=== PATIENT | male | born 1995 | race Caucasian/White ===

== ENCOUNTER 2017-01-08 13:13 | Emergency (ER) | payer BC, OTHER ==
[2017-01-08 13:17] VITALS: BP 115/65; PULSE 85; TEMP 99.1; BMI 25.8
--- NOTE | 2017-01-08 14:03 | PDOC ---
History of Present Illness - General Chief Complaint: Pain, Acute Stated Complaint: LEFT CHEEK PAIN Time Seen by Provider: 01/08/17 13:31 - History of Present Illness Initial Comments: 01/08/17 17:21 Chief complaint: Facial pain History of present illness: Patient has been experiencing severe pain in his left cheek for several days. There's been no trauma. The pain is localized to the area of the zygoma. It is painful to palpation and with mastication. He saw his dentist yesterday, who did a dental exam and dental x-rays, and told him that there is no problem with the teeth, and that his pain is becoming from elsewhere. Review of systems: No fever/chills, trauma, headache, earache or sore throat, cough, chest pain, shortness of breath, abdominal pain, nausea, vomiting, diarrhea, visual or focal neurologic symptoms, unsteadiness of gait Past medical history: Patient is a healthy male with mild asthma, no recent exacerbations, no maintenance medication, only rescue inhaler as needed Social/family history reviewed and noncontributory Physical exam: Alert oriented 3 well-developed well-nourished no acute distress cheerful and cooperative Examination of the face shows no swelling, erythema, induration, skin lesions or rash. There is moderate point tenderness over the infraorbital portion of the maxilla and the medial aspect of the zygoma. There is no palpable deformity Head is otherwise atraumatic. PERRLA 4 mm, fundi benign, ENT clear. Dentition appears intact and without evidence of DKA. No palpable tenderness of the oropharynx when examined from inside with a gloved finger. No gingival inflammation or tenderness Neck supple without bruit mass or nodes Chest clear CV regular without murmur rub or gallop Abdomen benign Neurological C2 to 12 intact. No focal sensory or motor deficits. Gait stable and unimpaired. Strength full and symmetric Impression: An occult dental abscess is probably the most likely etiology, especially since the pain is exacerbated with chewing. There is no pain or tenderness over the TMJ. There are no palpable masses. CT scan of the facial bones is negative except for chronic sinusitis bilaterally. Plan: Empiric treatment of sinusitis and follow-up ENT Past History - Past Medical History Allergies/Adverse Reactions: Allergies Allergy/AdvReac Type Severity Reaction Status Date / Time Seasonal Allergy Uncoded 01/08/17 13:15 Home Medications: Ambulatory Orders Budesonide [Rhinocort Allergy] 2 inh NS DAILY #1 spray.pump 01/08/17 Cefuroxime Axetil [Ceftin -] 500 mg PO Q12H #20 tablet 01/08/17 Naproxen [Naprosyn] 375 mg PO BID PRN #20 tablet 01/08/17 Asthma: Yes - Psycho/Social/Smoking Cessation Hx Anxiety: No Suicidal Ideation: No Smoking History: Never smoked Information on smoking cessation initiated: No Hx Alcohol Use: No Drug/Substance Use Hx: No Substance Use Type: None *Physical Exam - Vital Signs Last Vital Signs Temp Pulse Resp BP Pulse Ox 99.1 F 85 18 115/65 99 01/08/17 13:16 01/08/17 13:16 01/08/17 13:16 01/08/17 13:16 01/08/17 13:16 *DC/Admit/Observation/Transfer Diagnosis at time of Disposition: Acute sinusitis Qualifiers: Sinusitis location: maxillary Recurrence: non-recurrent Qualified Code(s): J01.00 - Acute maxillary sinusitis, unspecified - Discharge Dispostion Disposition: HOME Condition at time of disposition: Stable Admit: No - Prescriptions Prescriptions: Cefuroxime Axetil [Ceftin -] 500 mg PO Q12H #20 tablet Naproxen [Naprosyn] 375 mg PO BID PRN #20 tablet PRN Reason: Pain Budesonide [Rhinocort Allergy] 2 inh NS DAILY #1 spray.pump - Referrals Referrals: Gerardo Guadalupe MD [Staff Physician] - 1 week - Patient Instructions Printed Discharge Instructions: DI for Sinusitis Additional Instructions: If no improvement with therapy, must see ENT specialist for further evaluation and treatment.
== END 2017-01-08 15:16 | disposition home or self-care (01) ==
LOC: FER 13:13
DX: J01.00 Acute maxillary sinusitis, unspecified (principal); J45.909 Unspecified asthma, uncomplicated
CPT/HCPCS: 70486-TC; 99281-25

== ENCOUNTER 2017-08-12 11:47 | Emergency (ER) | payer OTHER, BC ==
[2017-08-12 11:51] VITALS: BP 124/76; PULSE 78; TEMP 97.9; BMI 25.8
--- NOTE | 2017-08-12 11:53 | PDOC ---
History of Present Illness - General Chief Complaint: Injury Stated Complaint: LEFT ANKLE PAIN Time Seen by Provider: 08/12/17 11:48 History Source: Patient Exam Limitations: No Limitations - History of Present Illness Initial Comments: 08/12/17 12:02 21y M hx of asthma presents with L ankle pain. The patient presents with L ankle pain s/p eversion injury. 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 The pt denies any numbnes/ tingling/weakness, no other pain including arm pain, neck pain, headache, or any other injuries. Past History - Past Medical History Allergies/Adverse Reactions: Allergies Allergy/AdvReac Type Severity Reaction Status Date / Time No Known Drug Allergies Allergy Verified 08/12/17 11:48 Seasonal Allergy Uncoded 01/08/17 13:15 Home Medications: Ambulatory Orders Albuterol Sulfate Inhaler - [Ventolin Hfa Inhaler -] 1 - 2 inh PO QID PRN Asthma: Yes COPD: No - Suicide/Smoking/Psychosocial Hx Smoking History: Never smoked Have you smoked in the past 12 months: No Hx Alcohol Use: (social) Drug/Substance Use Hx: No Substance Use Type: None Review of Systems - Review of Systems Able to Perform ROS?: Yes Comments:: 08/12/17 12:16 Musculskelatal - +L ankle pain no reported back pain, joint swelling skin - no reported bruising, erythema, rash neurological: no reported headache, numbness, focal weakness, tingling, ataxia, hematologic: no reported anemia, easy bruising, easy bleeding *Physical Exam - Vital Signs Last Vital Signs Temp Pulse Resp BP Pulse Ox 97.9 F 78 18 124/76 100 08/12/17 11:47 08/12/17 11:47 08/12/17 11:47 08/12/17 11:47 08/12/17 11:47 - Physical Exam Comments: 08/12/17 12:17 GENERAL: The patient is awake, alert, and fully oriented, Nontoxic - in no acute distress. HEAD: Normocephalic, atraumatic. NECK: Normal range of motion, supple, no focal midlnie tenderness in cervical/ thoracic/lumbar spine EXTREMITIES: minimal tenderness on L lateral malleolus, no navicular tenderness , minimal swelling, no knee tenderness, normal ROM of L knee and L hip, no proximal tib/fib tenderness, no 5th metatarsal tenderness, no ecchymosis Medical Decision Making - Medical Decision Making 08/12/17 12:20 eversion injury sprian vs fx awaiting xray pt declines pain medscations as he took motrin prior to arrival 08/12/17 13:14 xray neg for fx will dc iw supportive care an apolinar wrap, rice therapy *DC/Admit/Observation/Transfer Diagnosis at time of Disposition: Ankle sprain Qualifiers: Encounter type: initial encounter Involved ligament of ankle: unspecified ligament Laterality: left Qualified Code(s): S93.402A - Sprain of unspecified ligament of left ankle, initial encounter - Discharge Dispostion Disposition: HOME Condition at time of disposition: Stable Admit: No - Referrals Referrals: Jonn Mejia MD [Primary Care Provider] - - Patient Instructions Printed Discharge Instructions: DI for Ankle Sprain Additional Instructions: Return to the emergency department immediately with ANY new, persistent or worsening symptoms. Keep your extremity elevated. Apply ice to reduce swelling. Take ibuprofen for pain. Refrained from physical activity until reassessed. You MUST call and follow up with your doctor in 4-5 days for further evaluation of your symptoms. Results were discussed with you. Please make sure your doctor reviews the results of your emergency evaluation. Print Language: TANZANIAN - Post Discharge Activity Forms/Work/School Notes: Back to Work
== END 2017-08-12 13:25 | disposition home or self-care (01) ==
LOC: FER 11:47
DX: S93.402A Sprain of unspecified ligament of left ankle, initial encounter (principal); X50.0XXA Overexertion from strenuous movement or load, initial encounter; V58.4XXA Person boarding or alighting a pick-up truck or van injured in noncollision transport accident, initial encounter; Y93.89 Activity, other specified; Y92.480 Sidewalk as the place of occurrence of the external cause
CPT/HCPCS: 73610-TC-LT; 99282-25

== ENCOUNTER 2018-11-16 01:18 | Inpatient (IN) | payer BC, OTHER ==
[2018-11-16] MEDS ORDERED: SODIUM CHLORIDE 1,000 ML IV STA (01:20)
[2018-11-16] MEDS ORDERED: ACETAMINOPHEN 1000 MG/100 ML VIAL (NON FORMULARY) IVPB ONE (01:20)
[2018-11-16] MEDS ORDERED: ONDANSETRON 4 MG/2 ML VIAL IVPUSH ONE ×2 (01:20→04:19)
[2018-11-16] MEDS ORDERED: FAMOTIDINE 20 MG/50 ML IVPB 20 MG/50 ML MG IVPB ONE ×2 (01:20→20:51)
--- NOTE | 2018-11-16 01:20 | PDOC ---
History of Present Illness - General Stated Complaint: NAUSEA/VOMITING Time Seen by Provider: 11/16/18 01:20 History Source: Patient Exam Limitations: No Limitations - History of Present Illness Initial Comments: 22 yo M history asthma presents with nausea and vomiting multiple times tonight. He states he has been unable to keep anything down, including gatorade. No known sick contacts, no fever. Emesis is NBNB. C/o diffuse cramping pain to abdomen. Past History - Past Medical History Allergies/Adverse Reactions: Allergies Allergy/AdvReac Type Severity Reaction Status Date / Time No Known Drug Allergies Allergy Verified 11/16/18 01:19 Seasonal Allergy Uncoded 11/16/18 01:19 Home Medications: Ambulatory Orders Albuterol Sulfate Inhaler - [Ventolin Hfa Inhaler -] 1 - 2 inh PO QID PRN Asthma: Yes COPD: No - Suicide/Smoking/Psychosocial Hx Smoking History: Never smoked Have you smoked in the past 12 months: No Hx Alcohol Use: No Drug/Substance Use Hx: No Substance Use Type: None Review of Systems - Review of Systems Able to Perform ROS?: Yes Comments:: GENERAL/CONSTITUTIONAL: No fever or chills. No weakness. HEAD, EYES, EARS, NOSE AND THROAT: No change in vision. No ear pain or discharge. No sore throat. CARDIOVASCULAR: No chest pain or shortness of breath. RESPIRATORY: No cough, wheezing, or hemoptysis. GASTROINTESTINAL: +Nausea, vomiting. No diarrhea or constipation. GENITOURINARY: No dysuria, frequency, or change in urination. MUSCULOSKELETAL: No joint or muscle swelling or pain. No neck or back pain. SKIN: No rash. NEUROLOGIC: No headache, vertigo, loss of consciousness, or change in strength/ sensation. ENDOCRINE: No increased thirst. No abnormal weight change. HEMATOLOGIC/LYMPHATIC: No anemia, easy bleeding, or history of blood clots. ALLERGIC/IMMUNOLOGIC: No hives or skin allergy. *Physical Exam - Physical Exam Comments: GENERAL: Awake, alert, and fully oriented, in no acute distress HEAD: No signs of trauma EYES: PERRLA, EOMI, sclera anicteric, conjunctiva clear ENT: Auricles normal inspection, hearing grossly normal, nares patent, oropharynx clear without exudates. Dry mucosa NECK: Normal ROM, supple, no lymphadenopathy, JVD, or masses LUNGS: Breath sounds equal, clear to auscultation bilaterally. No wheezes, and no crackles HEART: Regular rate and rhythm, normal S1 and S2, no murmurs, rubs or gallops ABDOMEN: Soft, diffusely tender, hyperactive bowel sounds. No guarding, no rebound. No masses EXTREMITIES: Normal range of motion, no edema. No clubbing or cyanosis. No cords, erythema, or tenderness NEUROLOGICAL: Cranial nerves II through XII grossly intact. Normal speech, normal gait. Motor and sensation intact SKIN: Warm, Dry, normal turgor, no rashes or lesions noted. ED Treatment Course - LABORATORY CBC & Chemistry Diagram: 11/16/18 01:30 11/16/18 01:30 Medical Decision Making - Medical Decision Making 11/16/18 01:23 Presentation is most consistent with viral gastroenteritis. Point of maximum pain is epigastric. Will check basic labs and lipase. GI cocktail, IV fluids, reassess. 11/16/18 02:11 Pt reports some improvement with IV fluids and meds. Will cont to monitor. 11/16/18 03:37 Results d/w patient. He states he does not drink heavily, no past history of gallstones, and no known history of high triglycerides. I have added on a lipid profile. Will keep him NPO with IV fluids. Will admit. 11/16/18 04:00 Case d/w Dr. Garrido, I will await triglyceride results before admission, as he may require transfer if they are exceedingly high. Patient is NPO, I have started standing fluids. 11/16/18 05:28 Triglycerides are 75. Will d/w hospitalist. 11/16/18 05:31 Case d/w Dr. Garrido, accepted for admission. *DC/Admit/Observation/Transfer Diagnosis at time of Disposition: Nausea and vomiting Qualifiers: Vomiting type: unspecified Vomiting Intractability: non-intractable Qualified Code(s): R11.2 - Nausea with vomiting, unspecified Pancreatitis Qualifiers: Chronicity: acute Pancreatitis type: unspecified pancreatitis type Acute pancreatitis complication: unspecified Qualified Code(s): K85.90 - Acute pancreatitis without necrosis or infection, unspecified - Discharge Dispostion Condition at time of disposition: Stable Decision to Admit order: Yes - Referrals - Patient Instructions - Post Discharge Activity
[2018-11-16] MEDS ORDERED: ONDANSETRON 4 MG/2 ML VIAL ONE (01:38)
[2018-11-16] MEDS ORDERED: ACETAMINOPHEN INJECTION 100 ML IVPB ONE (01:38)
[2018-11-16 02:44] LABS: BASO % 0.3 % (0-2.0); HEMATOCRIT 45.3 % (35.4-49); LYMPH % 4.7 % (8-40); MCH 32.6 pg (25.7-33.7); MCHC 35.4 g/dl (32.0-35.9); MEAN PLT VOLUME 8.5 fl (7.5-11.1); MONO % 7.1 % (3.8-10.2); NEUT % 86.9 % (42.8-82.8); PLATELET COUNT 315 K/MM3 (134-434); RBC 4.92 M/mm3 (4.00-5.60); RDW 13.4 % (11.9-15.9); WHITE BLOOD COUNT 13.5 K/mm3 (4.0-10.0)
[2018-11-16 02:47] LABS: URINE APPEARANCE CLEAR; URINE BILIRUBIN NEGATIVE (<2.0 mg/dL); URINE COLOR YELLOW; URINE GLUCOSE (UA) NEGATIVE (NEGATIVE); URINE KETONE NEGATIVE (NEGATIVE); URINE LEUK ESTERASE NEGATIVE (NEGATIVE); URINE NITRITE NEGATIVE (NEGATIVE); URINE PROTEIN NEGATIVE (NEGATIVE); URINE UROBILINOGEN NEGATIVE mg/dL (0.2-1.0)
[2018-11-16 03:28] LABS: ALBUMIN 3.8 g/dl (3.4-5.0); ALK PHOS 72 U/L (45-117); ANION GAP 7 MMOL/L (8-16); BILIRUBIN,TOTAL 0.7 mg/dL (0.2-1); BLOOD UREA NITROGEN 21 mg/dL (7-18); CALCIUM 8.9 mg/dL (8.5-10.1); CHLORIDE 104 mmol/L (98-107); CO2 27 mmol/L (21-32); GLUCOSE,RANDOM 113 mg/dL (74-106); LIPASE 2222 U/L (73-393); POTASSIUM 3.6 mmol/L (3.5-5.1); SGOT/AST 30 U/L (15-37); SGPT/ALT 40 U/L (13-61); SODIUM 138 mmol/L (136-145); TOT PROT 7.1 g/dl (6.4-8.2)
[2018-11-16] MEDS ORDERED: SODIUM CHLORIDE 1,000 ML IV SCH ×2 (04:00→05:50)
[2018-11-16 05:08] LABS: CHOLESTEROL 179 mg/dL (50-200); HDL CHOLESTEROL 56 mg/dL (40-60); TRIGLYCERIDES 73 mg/dL (0-150)
[2018-11-16] MEDS ORDERED: KETOROLAC TROMETHAMINE 30 MG/1 ML VIAL IVPUSH ONE (05:28)
[2018-11-16] MEDS ORDERED: KETOROLAC TROMETHAMINE 30 MG/1 ML VIAL ONE (05:41)
[2018-11-16] MEDS ORDERED: PROMETHAZINE HCL 25 MG/1 ML VIAL IM PRN (05:47)
[2018-11-16] MEDS ORDERED: ALBUTEROL SO4 8 GM HFA INHALER IH PRN (05:50)
[2018-11-16 07:37] LABS: AMYLASE 117 U/L (25-115); MAGNESIUM 1.5 mg/dL (1.8-2.4)
--- NOTE | 2018-11-16 08:21 | HP ---
CHIEF COMPLAINT: Vomiting and abdominal pain PCP: Dr. Mejia HISTORY OF PRESENT ILLNESS: 22 year-old male with a PMH significant for asthma, presented to the ED with nausea, vomiting, and abdominal pain for several hours. Found to have significantly elevated lipase. Triglycerides are wnl. During the week patient has an occasional beer. He admits on this past Friday night he had 5 beers and 2 whiskies. He works out daily and takes supplements: Ghost and Red Label. He denies steroid use. He denies any type of IVDU. ER course was notable for: (1) WBC 13.5, afebrile (2) Lipase 2222; amylase 117 (3) LFTs wnl Recent Travel: No PAST MEDICAL HISTORY: Asthma PAST SURGICAL HISTORY: None Social History: Smoking: denies Alcohol: beer, whiskey (see above) Drugs: denies Family History: Allergies No Known Drug Allergies Allergy (Verified 11/16/18 01:19) Seasonal Allergy (Uncoded 11/16/18 01:19) HOME MEDICATIONS: Home Medications Medication Instructions Recorded Albuterol Sulfate Inhaler - 1 - 2 inh PO QID PRN 08/12/17 [Ventolin Hfa Inhaler -] REVIEW OF SYSTEMS CONSTITUTIONAL: Absent: fever, chills, diaphoresis, generalized weakness, malaise, loss of appetite, weight change HEENT: Absent: rhinorrhea, nasal congestion, throat pain, throat swelling, difficulty swallowing, mouth swelling, ear pain, eye pain, visual changes CARDIOVASCULAR: Absent: chest pain, syncope, palpitations, irregular heart rate, lightheadedness , peripheral edema RESPIRATORY: Absent: cough, shortness of breath, dyspnea with exertion, orthopnea, wheezing, stridor, hemoptysis GASTROINTESTINAL: +nausea, vomiting, abdominal pain Absent: abdominal distension, diarrhea, constipation, melena, hematochezia GENITOURINARY: +oliguria Absent: dysuria, frequency, urgency, hesitancy, hematuria, flank pain, genital pain MUSCULOSKELETAL: Absent: myalgia, arthralgia, joint swelling, back pain, neck pain SKIN: Absent: rash, itching, pallor HEMATOLOGIC/IMMUNOLOGIC: Absent: easy bleeding, easy bruising, lymphadenopathy, frequent infections ENDOCRINE: Absent: unexplained weight gain, unexplained weight loss, heat intolerance, cold intolerance NEUROLOGIC: Absent: headache, focal weakness or paresthesias, dizziness, unsteady gait, seizure, mental status changes, bladder or bowel incontinence PSYCHIATRIC: Absent: anxiety, depression, suicidal or homicidal ideation, hallucinations. PHYSICAL EXAMINATION Vital Signs - 24 hr 11/16/18 11/16/18 11/16/18 01:20 01:40 03:25 Temperature 97.7 F Pulse Rate 93 H Pulse Rate [ 70 Right] Respiratory 18 17 Rate Blood Pressure 122/73 Blood Pressure 115/67 [Left Arm] O2 Sat by Pulse 100 100 98 Oximetry (%) 11/16/18 11/16/18 11/16/18 06:21 06:45 06:46 Temperature 98.7 F Pulse Rate 72 Pulse Rate [ 72 Right] Respiratory 18 19 Rate Blood Pressure 115/53 L Blood Pressure 120/65 [Left Arm] O2 Sat by Pulse 99 95 Oximetry (%) GENERAL: A&Ox3; sleeping but easily arousable HEAD: Normal with no signs of trauma. EYES: Pupils equal, round and reactive to light, extraocular movements intact, sclera anicteric, conjunctiva clear. No lid lag. LUNGS: Breath sounds equal, clear to auscultation bilaterally. No wheezes, and no crackles. No accessory muscle use. HEART: Regular rate and rhythm, normal S1 and S2 without murmur, rub or gallop. ABDOMEN: Soft, diffusely tender, hypoactive bowel sounds MUSCULOSKELETAL: Normal range of motion at all joints. No bony deformities or tenderness. No CVA tenderness. UPPER EXTREMITIES: 2+ pulses, warm, well-perfused. No cyanosis. No clubbing. No peripheral edema. LOWER EXTREMITIES: 2+ pulses, warm, well-perfused. No calf tenderness. No peripheral edema. NEUROLOGICAL: Cranial nerves II-XII intact. Normal speech. Laboratory Results - last 24 hr 11/16/18 11/16/18 11/16/18 01:30 01:30 02:20 WBC 13.5 H RBC 4.92 Hgb 16.0 Hct 45.3 MCV 92.0 MCH 32.6 MCHC 35.4 RDW 13.4 Plt Count 315 MPV 8.5 Absolute Neuts (auto) 11.7 H Neutrophils % 86.9 H Lymphocytes % 4.7 L Monocytes % 7.1 Eosinophils % 1.0 Basophils % 0.3 Nucleated RBC % 0 Sodium 138 Potassium 3.6 Chloride 104 Carbon Dioxide 27 Anion Gap 7 L BUN 21 H Creatinine 1.0 Creat Clearance w eGFR > 60 Random Glucose 113 H Calcium 8.9 Magnesium 1.5 L Total Bilirubin 0.7 AST 30 ALT 40 Alkaline Phosphatase 72 Total Protein 7.1 Albumin 3.8 Triglycerides 73 Cholesterol 179 Total LDL Cholesterol 109 H HDL Cholesterol 56 Total Amylase 117 H Lipase 2222 H Urine Color Yellow Urine Appearance Clear Urine pH 6.0 Ur Specific Griffin 1.023 Urine Protein Negative Urine Glucose (UA) Negative Urine Ketones Negative Urine Blood Negative Urine Nitrite Negative Urine Bilirubin Negative Urine Urobilinogen Negative Ur Leukocyte Esterase Negative ASSESSMENT/PLAN 22 year-old male with a PMH significant for asthma, admitted for mild, acute pancreatitis. Mild, acute pancreatitis --lipase >2200, amylase mildly elevated --leukocytosis, afebrile; observe off antibiotics --received NS x 1L in ED; give LR x 2L now, then 150mL/hr --sent for US but patient vomited in room and was too anxious to continue with test --CTAP w/ contrast ordered --GI consult placed --UA, utox, blood cx, cbc, bmp, LFTs, lactic acid pending Oliguria --patient reports no UOP in 8 hours; --IV fluids --strict I&Os --repeat labs q12h Asthma --stable Hypomagnesemia --repleted FEN Fluids: LR@150mL/hr Electrolytes: replete as indicated Nutrition: NPO DVT prophylaxis: SCDs, oob, ambulation; hold chemical prophylaxis pending results of CT Dispo: continues to require inpatient care. Full code. Visit type - Emergency Visit Emergency Visit: Yes ED Registration Date: 11/16/18 Care time: The patient presented to the Emergency Department on the above date and was hospitalized for further evaluation of their emergent condition. - New Patient This patient is new to me today: Yes Date on this admission: 11/16/18 - Critical Care Critical Care patient: No
[2018-11-16] MEDS ORDERED: morphine CARPU-JECT 2 MG/1 ML DISP.SYRIN IVPUSH PRN (08:25)
[2018-11-16] MEDS ORDERED: LACTATED RINGERS SOLUTION 1,000 ML/1,000 ML INFUS.BAG IV STA ×2 (08:47→11:48)
[2018-11-16] MEDS: LACTATED RINGERS SOLUTION 1,000 ML/1,000 ML INFUS.BAG IV SCH (10:31)
[2018-11-16 11:35] LABS: CHOLESTEROL 133 mg/dl (50-200); HDL CHOLESTEROL 45 mg/dl (40-60)
[2018-11-16 11:39] LABS: TRIGLYCERIDES 23 mg/dl (0-150)
[2018-11-16] MEDS ORDERED: MAGNESIUM SULF 50% (8.12 MEQ/2 ML-1 GM VIAL) IVPB ONE (12:17)
--- NOTE | 2018-11-16 12:55 | PN ---
Progress Note (short form) - Note Progress Note: Patient seen and labs reviewed; consult dictated and CT scan pending. Patient with acute onset mid-abdominal pain and marked elevation of serum lipase (normal LFTs) ; c/w acute pancreatitis. No hx of gallstones or prior pancreatitis. Does drink some ETOH/beers on weekends. Denies abdominal trauma. Takes nutritional supplements but no meds. Agree with plans for CT scan Keep NPO IV fluids and PPI prn pain meds follow serum lipase/amylase
[2018-11-16] MEDS ORDERED: MAGNESIUM SULFATE IN WATER 2 GM/50 ML IVPB IVPB ONE (13:00)
[2018-11-16 13:45] LABS: URINE APPEARANCE Clear; URINE BILIRUBIN Negative (NEGATIVE); URINE COLOR Yellow; URINE GLUCOSE (UA) Negative (NEGATIVE); URINE KETONE Negative (NEGATIVE); URINE LEUK ESTERASE Negative (NEGATIVE); URINE NITRITE Negative (NEGATIVE); URINE PROTEIN Negative (NEGATIVE); URINE UROBILINOGEN 0.2 (0.2-1.0)
[2018-11-16 14:11] LABS: BASO % 0.2 % (0-2.0); EOS % 0.5 % (0-4.5); HEMATOCRIT 42.7 % (35.4-49); HEMOGLOBIN 14.3 GM/dl (11.7-16.9); LYMPH % 4.7 % (8-40); MCH 31.2 pg (25.7-33.7); MCHC 33.5 g/dl (32.0-35.9); MEAN CELL VOLUME 93.3 fl (80-96); MEAN PLT VOLUME 8.5 fl (7.5-11.1); MONO % 9.6 % (3.8-10.2); PLATELET COUNT 284 K/MM3 (134-434); RBC 4.57 M/mm3 (4.00-5.60); RDW 12.4 % (11.9-15.9); WHITE BLOOD COUNT 8.4 K/mm3 (4.0-10.8)
[2018-11-16 14:45] LABS: ALBUMIN 3.2 g/dl (3.4-5.0); ALK PHOS 57 U/L (45-117); ANION GAP 9 MMOL/L (8-16); BILIRUBIN,DIRECT 0.2 mg/dL (0.0-0.2); BILIRUBIN,TOTAL 1.2 mg/dl (0.2-1); BLOOD UREA NITROGEN 18 mg/dl (7-18); CALCIUM 8.6 mg/dl (8.5-10); CHLORIDE 102 mmol/L (98-107); CO2 23 mmol/L (21-32); CREATININE 0.9 mg/dl (0.55-1.3); GLUCOSE,RANDOM 94 mg/dl (74-106); MAGNESIUM 1.4 mg/dL (1.8-2.4); PHOSPHOROUS 2.9 mg/dl (2.5-4.9); POTASSIUM 3.6 mmol/L (3.5-5.1); SGOT/AST 25 U/L (15-37); SGPT/ALT 25 U/L (13-61); SODIUM 134 mmol/L (136-145); TOT PROT 5.7 g/dl (6.4-8.2)
[2018-11-16 15:52] LABS: COCAINE, UR NEGATIVE ng/ml (CUTOFF=300); METHADONE, UR NEGATIVE ng/ml (CUTOFF=300); PHENCYCLIDINE,URINE NEGATIVE ng/ml (CUTOFF=25); URINE AMPHETAMINES NEGATIVE ng/ml (CUTOFF=500); URINE BARBITURATES NEGATIVE ng/ml (CUTOFF=200); URINE BENZODIAZEPINES NEGATIVE ng/ml (CUTOFF=200)
[2018-11-16 16:15] LABS: OPIATES, URI POSITIVE ng/ml (CUTOFF=300)
[2018-11-16] MEDS: ACETAMINOPHEN 1000 MG/100 ML VIAL (NON FORMULARY) IVPB PRN (18:15)
[2018-11-16 19:30] VITALS: BMI 25.0
--- NOTE | 2018-11-16 21:23 | CONS ---
DATE OF CONSULTATION: 11/16/2018 HISTORY: I was asked to evaluate this 22-year-old gentleman admitted with acute onset of abdominal pain and elevated serum lipase consistent with pancreatitis. The patient is a 22-year-old gentleman with a history of asthma. He has, otherwise, been healthy and active. He does on occasion drink beer or a hard drink on the weekends but denies any excessive alcohol use. He was admitted with the acute onset of nausea, vomiting, abdominal pain in the mid to upper abdomen yesterday. He was evaluated in the emergency room and noted to have marked elevation of his serum lipase and a mild evaluation of his serum amylase with normal liver chemistries. The patient denies any prior history of pancreatitis, injury to the abdominal area, or family history of pancreatitis/hepatobiliary disease. He is unaware of an elevation of his serum triglyceride level and does not take any prescription medications; however, he does go to the gym and uses nutritional supplements. At the time of admission, the patient's serum lipase level was 2222 with a total amylase of 117. He had a normal bilirubin, AST, ALT level, and a normal alkaline phosphatase. His triglyceride level was 73. He had a white count of 13.5 with a hematocrit of 45.3. PHYSICAL EXAMINATION: General: He is a well-developed, well-nourished gentleman lying in bed in slight discomfort, although he has recently received morphine. HEENT: His conjunctivae are pink. There is no icterus. Lungs: Clear. Cardiac: Regular rate and rhythm. Abdomen: Soft. Not distended. Bowel sounds are slightly diminished. He has moderate tenderness in the mid epigastric area superior to the umbilicus. There is no obvious mass. IMPRESSION: Patient with acute pancreatitis of unclear etiology. Does not have a significant alcohol history and no known history of gallstones. No prior history of hepatobiliary or pancreatic disease. PLAN: We will review CAT scan, which is pending and may consider either obtaining additional imaging studies, i.e. MRI or sonogram pending the CAT scan findings. Would keep the patient n.p.o. and on IV fluids. IV PPI therapy would be suggested along with pain medicine as needed. Monitor his serum lipase level and amylase level. We will follow as needed. NICO SAMUELS M.D. [facility]/[id number]
--- NOTE | 2018-11-16 21:27 | EKG ---
Test Reason : Blood Pressure : / mmHG Vent. Rate : 066 BPM Atrial Rate : 066 BPM P-R Int : 128 ms QRS Dur : 092 ms QT Int : 362 ms P-R-T Axes : 025 034 018 degrees QTc Int : 379 ms NORMAL SINUS RHYTHM NORMAL ECG NO PREVIOUS ECGS AVAILABLE Confirmed by BELLA SANZ MD ([id number]) on 11/16/2018 9:27:29 PM Referred By: VESTA HULL Confirmed By:BELLA SANZ MD
[2018-11-16 23:00] LABS: LIPASE 379 U/L (73-393)
[2018-11-17] MEDS: ACETAMINOPHEN 1000 MG/100 ML VIAL (NON FORMULARY) IVPB PRN ×2 (00:42→09:44)
--- NOTE | 2018-11-17 05:10 | PN ---
Physical Exam: SUBJECTIVE: Patient seen and examined at [facility]. Overall feels better but abdominal pain still 5/10. No nausea, no vomiting. Patient asked about causes of pancreatitis. Discussed his alcohol intake as likely contributing factor and patient acknowledged the problem. OBJECTIVE: Vital Signs Period Temp Pulse Resp BP Sys/Piedra Pulse Ox Last 24 Hr 98.2 F-99.4 F 57-91 17-20 107-120/47-65 95-99 GENERAL: The patient is awake, alert, and fully oriented, in no acute distress. HEAD: Normal with no signs of trauma. EYES: PERRL, extraocular movements intact, sclera anicteric, conjunctiva clear. No ptosis. ENT: Ears normal, nares patent, oropharynx clear without exudates, moist mucous membranes. NECK: Trachea midline, full range of motion, supple. LUNGS: Breath sounds equal, clear to auscultation bilaterally, no wheezes, no crackles, no accessory muscle use. HEART: Regular rate and rhythm, S1, S2 without murmur, rub or gallop. ABDOMEN: Soft, nontender, nondistended, normoactive bowel sounds, no guarding, no rebound, no hepatosplenomegaly, no masses. EXTREMITIES: 2+ pulses, warm, well-perfused, no edema. NEUROLOGICAL: Cranial nerves II through XII grossly intact. Normal speech, gait not observed. PSYCH: Normal mood, normal affect. SKIN: Warm, dry, normal turgor, no rashes or lesions noted Laboratory Results - last 24 hr 11/16/18 11/16/18 11/16/18 01:30 10:50 10:55 WBC RBC Hgb Hct MCV MCH MCHC RDW Plt Count MPV Absolute Neuts (auto) Neutrophils % Lymphocytes % Monocytes % Eosinophils % Basophils % Sodium 138 Potassium 3.6 Chloride 104 Carbon Dioxide 27 Anion Gap 7 L BUN 21 H Creatinine 1.0 Creat Clearance w eGFR > 60 Random Glucose 113 H Lactic Acid Calcium 8.9 Phosphorus Magnesium 1.5 L Total Bilirubin 0.7 Direct Bilirubin AST 30 ALT 40 Alkaline Phosphatase 72 Creatine Kinase 247 Creatine Kinase Index 0.7 CK-MB (CK-2) 1.8 Total Protein 7.1 Albumin 3.8 Triglycerides 73 23 Cholesterol 179 133 Total LDL Cholesterol 109 H 83 HDL Cholesterol 56 45 Total Amylase 117 H Lipase 2222 H Urine Color Urine Appearance Urine pH Ur Specific [place] Urine Protein Urine Glucose (UA) Urine Ketones Urine Blood Urine Nitrite Urine Bilirubin Urine Urobilinogen Ur Leukocyte Esterase Opiates Screen Methadone Screen Barbiturate Screen Phencyclidine Screen Ur Amphetamines Screen MDMA (Ecstasy) Screen Benzodiazepines Screen Cocaine Screen U Marijuana (THC) Screen 11/16/18 11/16/18 11/16/18 13:00 13:00 13:37 WBC RBC Hgb Hct MCV MCH MCHC RDW Plt Count MPV Absolute Neuts (auto) Neutrophils % Lymphocytes % Monocytes % Eosinophils % Basophils % Sodium Potassium Chloride Carbon Dioxide Anion Gap BUN Creatinine Creat Clearance w eGFR Random Glucose Lactic Acid 1.2 Calcium Phosphorus Magnesium Total Bilirubin Direct Bilirubin AST ALT Alkaline Phosphatase Creatine Kinase Creatine Kinase Index CK-MB (CK-2) Total Protein Albumin Triglycerides Cholesterol Total LDL Cholesterol HDL Cholesterol Total Amylase Lipase Urine Color Yellow Urine Appearance Clear Urine pH 7.0 Ur Specific [place] 1.020 Urine Protein Negative Urine Glucose (UA) Negative Urine Ketones Negative Urine Blood Negative Urine Nitrite Negative Urine Bilirubin Negative Urine Urobilinogen 0.2 Ur Leukocyte Esterase Negative Opiates Screen Positive A* Methadone Screen Negative Barbiturate Screen Negative Phencyclidine Screen Negative Ur Amphetamines Screen Negative MDMA (Ecstasy) Screen Negative Benzodiazepines Screen Negative Cocaine Screen Negative U Marijuana (THC) Screen Negative 11/16/18 11/16/18 11/16/18 13:37 13:37 13:37 WBC 8.4 RBC 4.57 Hgb 14.3 Hct 42.7 MCV 93.3 MCH 31.2 MCHC 33.5 RDW 12.4 Plt Count 284 MPV 8.5 Absolute Neuts (auto) 7.2 Neutrophils % 85.0 H Lymphocytes % 4.7 L Monocytes % 9.6 Eosinophils % 0.5 Basophils % 0.2 Sodium 134 L Potassium 3.6 Chloride 102 Carbon Dioxide 23 Anion Gap 9 BUN 18 Creatinine 0.9 Creat Clearance w eGFR > 60 Random Glucose 94 Lactic Acid Calcium 8.6 Phosphorus 2.9 Magnesium 1.4 L Total Bilirubin 1.2 H Direct Bilirubin 0.2 AST 25 ALT 25 Alkaline Phosphatase 57 Creatine Kinase Creatine Kinase Index CK-MB (CK-2) Total Protein 5.7 L Albumin 3.2 L Triglycerides Cholesterol Total LDL Cholesterol HDL Cholesterol Total Amylase Lipase 379 Cancelled Urine Color Urine Appearance Urine pH Ur Specific [place] Urine Protein Urine Glucose (UA) Urine Ketones Urine Blood Urine Nitrite Urine Bilirubin Urine Urobilinogen Ur Leukocyte Esterase Opiates Screen Methadone Screen Barbiturate Screen Phencyclidine Screen Ur Amphetamines Screen MDMA (Ecstasy) Screen Benzodiazepines Screen Cocaine Screen U Marijuana (THC) Screen Active Medications Generic Name Dose Route Start Last Admin Trade Name Akbarq PRN Reason Stop Dose Admin Acetaminophen 1,000 mg 11/16/18 17:51 11/17/18 00:42 Ofirmev Injection - IVPB 1,000 mg Q6H PRN Administration MODERATE PAIN Albuterol Sulfate 2 puff 11/16/18 05:50 Ventolin Hfa Inhaler - IH QID PRN WHEEZING Lactated Ringer's 1,000 ml in 1,000 mls @ 150 mls/hr 11/16/18 09:00 11/16/18 10:31 Lactated Ringers Solution IV 150 mls/hr ASDIR PATY Administration Promethazine HCl 25 mg 11/16/18 05:47 11/16/18 10:00 Phenergan Injection - IM 25 mg Q6H PRN Administration NAUSEA AND/OR VOMITING ASSESSMENT/PLAN: 22 year-old male with a PMH significant for asthma, admitted for mild, acute pancreatitis. Mild, acute pancreatitis --11/16 CTAP w/contrast: moderate pelvic ascites in pelvic floor; infiltration of peripancreatic fat in region of pancreatic body and tail suspicious for acute pancreatitis; no duct dilitation --lipase >2200-->379; LFTs wnl --leukocytosis resolved, afebrile --GI following Oliguria, resolved --good UOP Asthma --stable Hypomagnesemia, resolved FEN Fluids: LR@50mL/hr Electrolytes: replete as indicated Nutrition: NPO DVT prophylaxis: SCDs, oob, ambulation Dispo: continues to require inpatient care. Full code. Visit type - Emergency Visit Emergency Visit: Yes ED Registration Date: 11/16/18 Care time: The patient presented to the Emergency Department on the above date and was hospitalized for further evaluation of their emergent condition. - New Patient This patient is new to me today: No - Critical Care Critical Care patient: No
[2018-11-17 07:50] LABS: HEMATOCRIT 40.3 % (35.4-49); HEMOGLOBIN 13.7 GM/dl (11.7-16.9); MCH 31.7 pg (25.7-33.7); MEAN CELL VOLUME 93.4 fl (80-96); MEAN PLT VOLUME 8.3 fl (7.5-11.1); PLATELET COUNT 260 K/MM3 (134-434); RBC 4.31 M/mm3 (4.00-5.60); RDW 12.7 % (11.9-15.9); WHITE BLOOD COUNT 6.4 K/mm3 (4.0-10.8)
[2018-11-17 07:54] LABS: ALBUMIN 2.9 g/dl (3.4-5.0); ALK PHOS 45 U/L (45-117); ANION GAP 0 MMOL/L (8-16); BILIRUBIN,TOTAL 1.1 mg/dl (0.2-1); BLOOD UREA NITROGEN 11 mg/dl (7-18); CALCIUM 8.4 mg/dl (8.5-10); CHLORIDE 106 mmol/L (98-107); CO2 31 mmol/L (21-32); CREATININE 0.8 mg/dl (0.55-1.3); GLUCOSE,RANDOM 100 mg/dl (74-106); POTASSIUM 4.2 mmol/L (3.5-5.1); SGOT/AST 20 U/L (15-37); SGPT/ALT 21 U/L (13-61); SODIUM 137 mmol/L (136-145); TOT PROT 5.3 g/dl (6.4-8.2)
[2018-11-17] MEDS: LACTATED RINGERS SOLUTION 1,000 ML/1,000 ML INFUS.BAG IV SCH (09:46)
[2018-11-17 10:08] LABS: MAGNESIUM 1.9 mg/dL (1.8-2.4)
[2018-11-17] MEDS ORDERED: LACTATED RINGERS SOLUTION 1,000 ML/1,000 ML INFUS.BAG IV SCH (21:30)
--- NOTE | 2018-11-18 09:46 | PN ---
Progress Note (short form) - Note Progress Note: Patient feels better with minimal abdominal discomfort (1/10); tolerating soft diet. Lipase level normal and no N/V/cramps VSS Abdomen soft +BS nontender Imp: resolving pancreatitis ?etiology (?ETOH) Agree with solwly advancing diet and plans for discharge. Diet and ETOH avoidance reviewed with patient
[2018-11-18 11:51] VITALS: BP 141/68; PULSE 69; TEMP 97.5
== END 2018-11-18 12:23 | disposition home or self-care (01) | DRG 440 ==
LOC: FER 01:18 → FM/S 05:48
PROVIDERS: ADMIT Internal Medicine; ATTEND Nurse Practitioner Acute Care
DX: K85.90 Acute pancreatitis without necrosis or infection, unspecified (principal); J45.909 Unspecified asthma, uncomplicated; E83.42 Hypomagnesemia; R34 Anuria and oliguria
CPT/HCPCS: 36415; 74177-TC; 80048; 80053; 80061; 80076; 80307; 81003; 82150; 82550; 82553; 83605; 83690; 83721; 83735; 84100; 85025; 85027; 87040; 87086; 93005; 99284-25; J0131; J7030

== ENCOUNTER 2020-12-13 20:01 | Emergency (ER) | payer BC ==
[2020-12-13] MEDS ORDERED: DIPHTH,PERTUSS(ACELL),TET 0.5 ML DISP.SYRIN IM ONE ×2 (20:23→21:16)
[2020-12-13 21:13] VITALS: BP 114/20; PULSE 79; TEMP 98.3; BMI 26.8
== END 2020-12-13 22:09 | disposition home or self-care (01) ==
LOC: JER 20:01
PROC: 3E0234Z Introduction of Serum, Toxoid and Vaccine into Muscle, Percutaneous Approach (ICD-10-PCS; principal; 2020-12-13)
DX: S91.331A Puncture wound without foreign body, right foot, initial encounter (principal)
CPT/HCPCS: 73630-TC-RT-FY; 90715; 99284-25

== ENCOUNTER 2021-04-16 22:01 | Emergency (ER) | payer BC ==
[2021-04-16 22:10] VITALS: BP 107/69; PULSE 86; TEMP 97; BMI 28.1
[2021-04-16] MEDS ORDERED: ACETAMINOPHEN 325 MG TABLET (FP) PO ONE (23:28)
[2021-04-16] MEDS ORDERED: LACTATED RINGERS SOLUTION 1000 ML INFUS.BAG IV ONE (23:28)
[2021-04-16] MEDS ORDERED: ACETAMINOPHEN 325 MG TABLET (FP) ONE (23:38)
[2021-04-16 23:54] LABS: EPI CELLS 2 /uL (0-25.1); HYALINE CASTS 0 /uL (0-3.1); URINE APPEARANCE CLEAR; URINE BACTERIA 93 /uL (0-1359); URINE BILIRUBIN NEGATIVE (NEGATIVE); URINE COLOR YELLOW; URINE GLUCOSE (UA) NEGATIVE (NEGATIVE); URINE KETONE NEGATIVE (NEGATIVE); URINE LEUK ESTERASE NEGATIVE (NEGATIVE); URINE NITRITE NEGATIVE (NEGATIVE); URINE PROTEIN NEGATIVE (NEGATIVE); URINE RBC 3 /uL (0-23.9); URINE UROBILINOGEN 0.2 mg/dL (0.2-1.0); URINE WBC 3 /uL (0-25.8)
== END 2021-04-17 02:39 | disposition home or self-care (01) ==
LOC: JER 22:01
DX: Z04.1 Encounter for examination and observation following transport accident (principal); V89.2XXA Person injured in unspecified motor-vehicle accident, traffic, initial encounter; Y92.9 Unspecified place or not applicable
CPT/HCPCS: 70450-TC; 71046-TC-FY; 72125-TC; 72170-TC-FY; 81003; 99284-25

== ENCOUNTER 2024-06-15 04:14 | Emergency (ER) | payer OTHER ==
[2024-06-15 04:33] VITALS: BP 106/61; PULSE 82; RESP 18; TEMP 98; BMI 27.3
[2024-06-15] MEDS ORDERED: IBUPROFEN 600 MG TABLET (FP) PO ONE (05:28)
[2024-06-15] MEDS: IBUPROFEN 600 MG TABLET (FP) PO ONE (05:30)
== END 2024-06-15 05:45 | disposition home or self-care (01) ==
LOC: JER 04:14
DX: S93.401A Sprain of unspecified ligament of right ankle, initial encounter (principal); Y35.811A Legal intervention involving manhandling, law enforcement official injured, initial encounter
CPT/HCPCS: 73610-TC-RT-FY; 73630-TC-RT-FY; 99283-25